=== PATIENT | male | born 1975 | race Hispanic/Latino ===

== ENCOUNTER 2017-01-08 18:35 | Emergency (ER) | payer SELFPAY ==
[~2017-01-08] VITALS: Ht 162.6 cm; Wt 113.6 kg
[2017-01-08 18:52] VITALS: BP 136/78; PULSE 53; RESP 24; O2SAT 98
--- NOTE | 2017-01-08 19:00 | ED.REPORT ---
HPI-General Illness Date of Service Jan 08, 2017 ED Provider: Eulogio Jolley MD The pt is a 41 year old male presenting to the ED via EMS complaining of substernal chest pain onset 5 hours ago. He describes the pain as nonradiating, sharp, and a 9/10 severity at its worst. The pain was somewhat relieved by pain medication and is now a 6/10. He admits vomiting and being diaphoretic due to the pain. He denies any other pertinent symptoms. Nursing Notes Stated Complaint: CHEST PAIN Chief Complaint: Chest Pain Nursing Notes Reviewed: Yes Allergies: Coded Allergies: No Known Allergies (Unverified Allergy, Unknown, 01/08/17) General Time Seen by MD: 18:59 Chief Complaint Chest pain Hx Obtained From: Patient Arrived By: Ambulance Sudden in Onset?: Yes Onset Occurred: 5 - 8 hours ago Symptom Duration: Since onset Location: : Chest Quality: Sharp Radiation: : Does not radiate Severity: Current: Pain level 6 out of 10 Severity: Maximum: Pain level 9 out of 10 Associated with: Reports: Vomiting Exacerbated by: Standing up Relieved by: Prescription meds Recent Healthcare: No recent doctor visit, No recent hospitalization Similar Sx Previous: No Past Medical History Past Medical History None reported Past Surgical History Hernia repair Smoking History Current Every Day Smoker Social History Alcohol Use: "Social" Drug Use: Denies drug use Other Social History: Good social support Ambulatory Status Independent Review of Systems Full Review of Systems Constitutional: Denies: Chills, Fever Eyes: Denies: Visual loss bilateral Respiratory: Denies: Shortness of breath Cardiovascular: Reports: Chest pain GI: Reports: Vomiting, Denies: Abdominal pain, Diarrhea Male: Denies Dysuria Musculoskeletal: Denies: Back pain Skin: Reports Diaphoresis Neurologic: Denies: Headache Complete sys rev & neg: except as marked. Physical Exam Nursing note and vitals reviewed. Constitutional: Well-developed, well-nourished. Not diaphoretic. Head: Normocephalic and atraumatic. Mouth/Throat: Oropharynx is clear and moist. No oropharyngeal exudate. Eyes: EOM are normal. Pupils are equal, round, and reactive to light. Neck: Supple, no tracheal deviation. Cardiovascular: Normal rate, regular rhythm. Equal and intact distal pulses throughout. Pulmonary/Chest: Effort normal and breath sounds normal. No respiratory distress. Abdominal: Soft. No distension. There is no tenderness, rebound, or guarding. Bowel sounds present. Musculoskeletal: Range of motion grossly intact, moving all extremities. No edema or tenderness appreciated. Neurological: AOx3. Grossly nonfocal exam. Strength and sensation intact and equal to bilateral upper and lower extremities. Skin: Warm and dry, no rashes or pallor appreciated. Psychiatric: Appropriate mood and affect. Behavior appears normal. Vital Signs Vital Signs Date Time Temp Pulse Resp B/P Pulse Ox O2 Delivery O2 Flow Rate FiO2 01/08/17 21:58 57 20 139/68 99 Nasal Cannula 2 01/08/17 20:15 46 16 149/67 100 Nasal Cannula 2 01/08/17 18:52 36.1 53 24 136/78 98 2 Initial VS: Reviewed Interpretation & Diagnostics Lab Results Interpretation Result Diagram: 01/08/17190601/08/171906 Test 01/08/17 19:07 01/08/17 19:17 White Blood Count 12.9th/mm3 (3.8-10.1) Red Blood Count 5.18mil/mm3 (4.40-5.80) Hemoglobin 15.9g/dL (13.8-17.2) Hematocrit 45.8% (41.0-50.0) Mean Corpuscular Volume 88.4fL (81-100) Mean Corpuscular Hemoglobin 30.7pg (27.0-35.0) Mean Corpuscular Hemoglobin Concent 34.7% (32.0-37.0) Red Cell Distribution Width 12.3% (12.3-15.4) Platelet Count 267bil/L (150-400) Neutrophils (%) (Auto) 75.7% (40-74) Lymphocytes (%) (Auto) 16.2% (14-46) Monocytes (%) (Auto) 6.7% (4-12) Eosinophils (%) (Auto) 1.1% (0-5) Basophils (%) (Auto) 0.1% (0-3) Sodium Level 140mEq/L (134-144) Potassium Level 4.3mEq/L (3.5-5.2) Chloride Level 99mEq/L (97-108) Carbon Dioxide Level 28mmol/L (18-29) Blood Urea Nitrogen 15mg/dL (6-20) Creatinine 0.75mg/dL (0.76-1.27) Estimat Glomerular Filtration Rate 123mL/min (>59) Glucose Level 120mg/dL (60-99) Calcium Level 9.0mg/dL (8.5-10.1) Magnesium Level 2.3mg/dL (1.6-2.6) Total Bilirubin 0.3mg/dL (0.0-1.2) Aspartate Amino Transf (AST/SGOT) 22U/L (0-50) Alanine Aminotransferase (ALT/SGPT) 30U/L (0-44) Alkaline Phosphatase 98U/L (25-150) Troponin T < 0.010ug/L (0.0-0.011) Total Protein 7.7g/dL (6.4-8.4) Albumin 4.1g/dL (3.4-5.0) Hold Rausch Top Tube Received (Received) Lipase 37U/L (13-60) Lab Results Interpretation: LABS: CBC and CMP within normal limits WBC 12.9 ECG Interpretation ECG Interpretation: Sinus bradycardia Rate 49 Time: 19:10 Interpreted by: ED physician Normal ECG Interpretation: No change from prior ECGs X-Ray Chest Interpretation Chest Xray Interpretation: IMPRESSION: Reduced inspiratory volume, no acute disease. Dictated by: Aquilino Beck M.D. on 01/08/2017 at 19:50 View: Portable, 1 view Interpretation / Wet Read by: Interpret - Radiologist Re-Eval/Medical Decision Med Decision/Clinical Course In summary, 41-year-old male with no known past medical history who presents to the ED for evaluation of nonexertional nonradiating mid sternal chest pain since earlier today. Differential includes ACS, PE, PTX, aortic dissection, myocarditis/pericarditis, abdominal etiology such as cholecystitis, MSK pain. Pain has been constant since onset 4 hours ago; troponin negative. HEART score of 2. EKG demonstrates sinus rhythm, bradycardia, with no acute ischemic changes. PERC negative. No evidence of pneumothorax on chest x-ray or exam. Pain not described as tearing through to the back, CXR w/ no evidence of widened mediastinum, normal neuro exam, and equal pulses to bilateral upper and lower extremities; aortic dissection seems very unlikely. Neither clinical presentation, exam, or EKG seem c/w pericarditis or myocarditis. No abdominal pain or tenderness. Rest of labs reviewed, unremarkable, including CBC and CMP grossly within normal limits with the exception of a mildly elevated white blood cell count of 12.9. Patient did have several episodes where he was feeling nauseous and lightheaded; these correlated with episodes of bradycardia - suspect that he had a vasovagal episode, as upon my assessment, he has a normal rate. Patient given GI cocktail with relief of symptoms. Patient would likely benefit from a stress test for risk stratification - discussed doing this here or as an outpatient and decided to follow up on Tuesday with his primary care doctor. Plan discharge home with careful return precautions, close PCP follow-up. Patient agreeable to plan, no further questions. Time of Eval: 21:42 Re-Evaluation/Progress Note: Patient rechecked. Discussed lab results and plan to discharge. All questions addressed. Counseled Regarding: Diagnosis, Lab results, Need for follow-up, When/why to return to ED Discharge & Departure Primary Impression: Chest pain Chest pain type: unspecified Qualified Code: R07.9 - Chest pain, unspecified Disposition: Home Discharge Condition All VS Reviewed: Yes Condition: Improved Patient Instructions: Chest Pain (ED) Additional Instructions: Thank you for allowing us to be a part of your care in the ED today. Your emergency department results, including a chest x-ray, and blood work, are reassuring. I do not think that there is an emergent cause for your symptoms today that would require admission to the hospital. Get a stress test in the next couple of days. Please schedule a follow up appointment with your primary care physician tomorrow for a recheck. Please return to the emergency department for any new or worsening symptoms including any nausea, vomiting, abdominal pain, shortness of breath, chest pain , one sided weakness/numbness, fevers, or chills, or if there's anything else of concern to you. Referrals: [facility] [place] Attestation Portions of this note were transcribed by Antonio Barrios. I, Dr. Jolley personally performed the history, physical exam and medical decision-making; I reviewed and confirmed the accuracy of the information in the transcribed note. Signed by: Chloe Vernon, 01/08/2017 copies to: [facility] Eulogio Jolley MD Jan 08, 2017 19:00 Jan 08, 2017 19:26
[2017-01-08 19:30] LABS: BASOPHILS % (AUTO) 0.1 % (0-3); EOSINOPHILS % (AUTO) 1.1 % (0-5); MONOCYTES % (AUTO) 6.7 % (4-12); Mean Corpuscular Hemoglobin 30.7 pg (27.0-35.0); Mean Corpuscular Volume 88.4 fL (81-100); NEUTROPHILS % (AUTO) 75.7 % (40-74); Platelet Count 267 bil/L (150-400)
--- NOTE | 2017-01-08 19:52 | DRSVH ---
PROCEDURE: X-RAY CHEST ONE VIEW, PORTABLE ([id number]) INDICATIONS: CHEST PAIN TECHNIQUE: One view of the chest was acquired. COMPARISON: None. FINDINGS: Surgical changes and devices: None. Lungs and pleura: No pleural effusions or pneumothorax. Lungs are clear. Mediastinum: Mediastinal contours appear normal. Heart size is normal. Bones and chest wall: No suspicious bony lesions. Overlying soft tissues appear unremarkable. IMPRESSION: Reduced inspiratory volume, no acute disease. Dictated by: Aquilino Beck M.D. on 01/08/2017 at 19:50 Approved by: Aquilino Beck M.D. on 01/08/2017 at 19:50
[2017-01-08 19:58] LABS: TROPONIN T < 0.010 ug/L (0.0-0.011)
[2017-01-08 20:07] LABS: Magnesium 2.3 mg/dL (1.6-2.6)
[2017-01-08 20:15] VITALS: BP 149/67; PULSE 46; RESP 16; O2SAT 100
[2017-01-08] MEDS ORDERED: LidocaineVisc 2%:Antacid 1:1 10 mL Syringe PO SCH (21:15)
[2017-01-08] MEDS ORDERED: LidocaineVisc 2%:Antacid 1:1 10 mL Syringe PO ONE (21:40)
[2017-01-08 21:58] VITALS: BP 139/68; PULSE 57; RESP 20; O2SAT 99
[2017-01-08 23:10] VITALS: BP 166/87; PULSE 46; RESP 13; O2SAT 98
[2017-01-08 23:32] VITALS: BP 159/77; PULSE 85; RESP 23; O2SAT 98
== END 2017-01-08 23:33 | disposition home or self-care (01) ==
LOC: SED 18:35
DX: R07.2 Precordial pain (principal); R11.10 Vomiting, unspecified; R61 Generalized hyperhidrosis; F17.200 Nicotine dependence, unspecified, uncomplicated
CPT/HCPCS: 36415; 71010; 80053; 82948; 83690; 83735; 84484; 85025; 93005; 96374; 99285; J2270